=== PATIENT | female | born 1950 | race Caucasian/White ===

== ENCOUNTER → 2017-02-08 | Outpatient (CLI) | payer MEDICARE, OTHER | LOC: RAD 13:52 | PROVIDERS: ATTEND Internal Medicine | DX: T18.4XXA Foreign body in colon, initial encounter (principal); X58.XXXA Exposure to other specified factors, initial encounter; Y93.9 Activity, unspecified; Y92.9 Unspecified place or not applicable; E78.81 Lipoid dermatoarthritis | CPT/HCPCS: 73720; 74020; A9576 ==